=== PATIENT | male | born 1960 ===

== ENCOUNTER 2025-03-02 11:29 | Emergency (ER) | payer OTHER ==
[~2025-03-02] VITALS: Ht 157.5 cm; Wt 82.1 kg
[2025-03-02 11:54] VITALS: BP 109/78; O2SAT 98
[2025-03-02] MEDS ORDERED: METFORMIN HCL500 M3 (11:55)
[2025-03-02] MEDS ORDERED: METHYLPREDNISOLONE SOD SUCC 125 MG VIAL IV ONE (13:00)
[2025-03-02] MEDS ORDERED: DIPHENHYDRAMINE HCL 50 MG/ML VIAL 1ML IV ONE (13:00)
[2025-03-02] MEDS ORDERED: ALBUTEROL SULFATE 3 ML/2.5 MG AMPUL.NEB IH SCH (13:00)
[2025-03-02 13:15] LABS: BASO % 0.4 % (0.1-1.2); EOS # 0.17 (0.04-0.54); EOS % 1.7 % (0.7-7.0); LYMPH # 1.46 (1.18-3.74); LYMPH % 14.9 % (19.3-53.1); MEAN PLATELET VOLUME 9.80 fl (9.4-12.4); MONO # 0.65 (0.24-0.82); MONO % 6.7 % (4.7-12.5); NEUT # 7.40 (1.56-6.13); NEUT % 75.8 % (34.0-71.1); RED CELL DISTRIBUTION WIDTH 12.1 % (11.6-14.4)
[2025-03-02] MEDS ORDERED: IPRATROPIUM BROMIDE 0.5 MG/2.5 ML AMPUL.NEB IH SCH (13:15)
[2025-03-02 13:35] LABS: BUN CREA RATIO 23.0 (7.0-25.0); CREATININE SERUM 1.12 mg/dL (0.70-1.30); GFR 66.22; OSMOLALITY SERUM 297.0 MOSM/KG (275-295)
[2025-03-02 13:40] LABS: GLUCOSE FASTING 300.0 mg/dL (65-100)
[2025-03-02 13:53] LABS: COVID-19 AG NEGATIVE (NEGATIVE)
== END 2025-03-02 18:31 | disposition home or self-care (01) ==
LOC: ER 11:29
PROVIDERS: General Practice
DX: J45.901 Unspecified asthma with (acute) exacerbation (principal); Z20.822 Contact with and (suspected) exposure to COVID-19; E11.9 Type 2 diabetes mellitus without complications; Z79.84 Long term (current) use of oral hypoglycemic drugs; I10 Essential (primary) hypertension; J44.9 Chronic obstructive pulmonary disease, unspecified